=== PATIENT | male | born 1950 | race Hispanic/Latino ===

== ENCOUNTER 2019-04-08 21:26 | Emergency (ER) | payer OTHER ==
[2019-04-08 22:07] LABS: #Basophils 0.1 thou/uL (0.0-0.2); #Eosinphils 0.1 thou/uL (0.0-0.7); #Monocytes 1.3 thou/uL (0.11-0.59); #Neutrophils 13.7 thou/uL (1.40-6.50); %Basophils 0.5 % (0.0-1.0); %Eosinophils 0.8 % (0.0-10.0); %Lymphocytes 11.6 % (21.0-51.0); %Monocytes 7.5 % (0.0-10.0); %Neutrophils 79.6 % (42.0-75.0); Hemoglobin 15.6 g/dL (14.0-18.0); Mean Corpuscular HGB CONC 34.4 g/dL (32.0-36.0); Mean Corpuscular Hemoglobin 29.3 pg (27.0-31.0); Mean Corpuscular Volume 85.1 fL (78.0-98.0); Mean Platelet Volume 9.2 fL (7.4-10.4); Platelet Count 212 thou/uL (130-400); RBC Distribution Width 14.1 % (11.5-14.5); Red Blood Cell (RBC) Count 5.32 mill/uL (4.70-6.10); White Blood Cell (WBC) Count 17.2 thou/uL (4.8-10.8)
--- NOTE | 2019-04-08 22:10 | RAD ---
Portable frontal chest radiograph: 04/08/2019 COMPARISON: None HISTORY: Chest pain FINDINGS: Mild bilateral hilar prominence noted. No pneumothorax, lobar consolidation, or alveolar ed xenia. This is likely vascular in nature. Adenopathy cannot be fully excluded. Follow-up PA and lateral imag ing of the chest suggested on a nonemergent basis. IMPRESSION: Mild bilateral hilar prominence as above. No focal consolidation or alveolar edema.
[2019-04-08] MEDS ORDERED: Nitroglycerin 2% Ointment 1 INCH/1 GM Packet ONE (22:20)
[2019-04-08 22:26] LABS: ALT (SGPT) 23 U/L (8-55); AST (SGOT) 14 U/L (5-34); Albumin 4.2 g/dL (3.4-4.8); Alkaline Phosphatase 70 U/L (40-150); Anion Gap 14 mmol/L (10-20); BUN (Urea Nitrogen) 13 mg/dL (8.4-25.7); Bilirubin, Total 0.4 mg/dL (0.2-1.2); CK (CPK) 88 U/L (30-200); Calc. Creatinine Clearance 0 mL/min (70-130); Calcium 9.9 mg/dL (7.8-10.44); Carbon Dioxide 24 mmol/L (23-31); Chloride 102 mmol/L (98-107); Estimated GFR-MDRD 73; Globulin 3.5 g/dL (2.4-3.5); Glucose 138 mg/dL (80-115); Potassium 3.7 mmol/L (3.5-5.1); Protein, Total 7.7 g/dL (5.8-8.1); Sodium 136 mmol/L (136-145)
[2019-04-08] MEDS ORDERED: Ketorolac Tromethamine 30 MG/ML VIAL ONE (23:12)
--- NOTE | 2019-04-12 10:34 | EKG ---
Test Reason : Blood Pressure : / mmHG Vent. Rate : 089 BPM Atrial Rate : 089 BPM P-R Int : 128 ms QRS Dur : 088 ms QT Int : 358 ms P-R-T Axes : 035 -35 049 degrees QTc Int : 435 ms Sinus rhythm with Premature atrial complexes Left axis deviation Minimal voltage criteria for LVH, may be normal variant Abnormal ECG Confirmed by CLAIRE NAVAS ([id number]), dictionary editor TONI ALVA ([id number]) on 04/12/2019 10:34:05 AM Referred By: Confirmed By:CLAIRE NAVAS
== END 2019-04-08 23:55 | disposition still patient (30) ==
LOC: EEVIPCON 21:26 → ERS 21:26
DX: R07.89 Other chest pain (principal); R51 Headache; I25.10 Atherosclerotic heart disease of native coronary artery without angina pectoris; I10 Essential (primary) hypertension; E11.9 Type 2 diabetes mellitus without complications; N40.0 Benign prostatic hyperplasia without lower urinary tract symptoms; E03.9 Hypothyroidism, unspecified; E66.9 Obesity, unspecified; Z79.899 Other long term (current) drug therapy; Z79.84 Long term (current) use of oral hypoglycemic drugs; Z79.82 Long term (current) use of aspirin
CPT/HCPCS: 36415; 71045; 80053; 82550; 83690; 83880; 84484; 85025; 93005; 96361; 96374; J1885